=== PATIENT | male | born 1995 | race African-American/Black ===

== ENCOUNTER 2017-09-15 22:17 | Emergency (ER) | payer OTHER ==
[2017-09-15] MEDS ORDERED: Adacel (T-DAP) 0.5 ML VIAL ONE (22:35)
== END 2017-09-15 22:45 | disposition home or self-care (01) ==
LOC: ERS 22:17
DX: S01.81XA Laceration without foreign body of other part of head, initial encounter (principal); W50.0XXA Accidental hit or strike by another person, initial encounter; Y93.67 Activity, basketball; Y92.39 Other specified sports and athletic area as the place of occurrence of the external cause
CPT/HCPCS: 12013; 90471; 90715